=== PATIENT | male | born 1965 | race Caucasian/White ===

== ENCOUNTER 2019-08-23 11:35 | Emergency (ER) | payer OTHER ==
[~2019-08-23] VITALS: Ht 182.9 cm; Wt 108.9 kg
[2019-08-23 11:37] VITALS: BP 146/74; Ht 182.9 cm; Wt 108.9 kg
== END 2019-08-23 12:11 | disposition other institution (70) ==
LOC: ED 11:35 → EDBD 11:35 → ED 12:11
DX: Z02.89 Encounter for other administrative examinations (principal)